=== PATIENT | female | born 2000 | race American Indian/Alaskan Native ===

== ENCOUNTER 2021-09-03 18:57 | Emergency (ER) | payer MEDICAID ==
[2021-09-03 20:12] VITALS: BP 142/75
[2021-09-03] MEDS ORDERED: ONDANSETRON 4 MG/2 ML INJ IV ONE (20:36)
[2021-09-03] MEDS ORDERED: SODIUM CHLORIDE 0.9% 1000 ML 1,000 ML IV ONE (20:36)
[2021-09-03] MEDS ORDERED: FAMOTIDINE 20 MG/2 ML INJ IV ONE (20:36)
[2021-09-03] MEDS ORDERED: MORPHINE 4 MG/1 ML INJ IV ONE (20:36)
--- NOTE | 2021-09-03 20:55 | Emergency Department Report ---
ED Abdominal Pain HPI - General Chief Complaint: Abdominal Pain Stated Complaint: RT UPPER QUAD PAIN Source: patient Mode of arrival: Ambulatory Limitations: No Limitations - History of Present Illness Initial Comments: Patient is a nulliparous 21-year-old -Luxembourger female with a history of insulin-dependent diabetes who presents to the ED with complaint of acute onset persistent right upper quadrant abdominal pain that radiates to the epigastric area with nausea for the last 24 hours. Patient states that the pain is constant and persistent and worse with any movement or palpation. Patient denies vomiting, diarrhea, dysuria, urinary frequency and urgency, fever, chills, cough, chest pain or shortness of breath, hematuria, vaginal bleeding, vaginal discharge, hematemesis, low back pain, traumatic injury or heavy lifting. MD Complaint: abdominal pain (Right upper quadrant pain), other (Nausea) -: Sudden, hour(s) (24) Location: RUQ, epigastric Radiation: RUQ, epigastric Migration to: no migration Severity: severe Severity scale (0 -10): 7 Quality: cramping, sharp Consistency: constant Improves With: nothing Worsens With: eating Associated Symptoms: nausea, anorexia. denies: denies other symptoms, vomiting, diarrhea, chills, constipation, hematemesis, melena, syncope - Related Data LMP Date: 05/07/21 (On control, no sexually active) LMP (females 10-50): 3 months Previous Rx's Medication Instructions Recorded Last Taken Type Famotidine [Pepcid] 20 mg PO BID #60 tablet 09/04/21 Unknown Rx Ketorolac [Toradol] 10 mg PO Q8H PRN #20 tab 09/04/21 Unknown Rx Ondansetron [Zofran Odt] 4 mg PO Q8HR PRN #15 tab.rapdis 09/04/21 Unknown Rx Tamsulosin [Flomax] 0.4 mg PO QDAY #10 cap 09/04/21 Unknown Rx traMADoL [Ultram] 50 mg PO Q6HR PRN #12 tablet 09/04/21 Unknown Rx Allergies Allergy/AdvReac Type Severity Reaction Status Date / Time No Known Allergies Allergy Unverified 09/03/21 20:18 ED Review of Systems ROS: Stated complaint: RT UPPER QUAD PAIN Other details as noted in HPI Constitutional: denies: chills, fever Eyes: denies: eye pain, eye discharge, vision change ENT: denies: ear pain, throat pain Respiratory: denies: cough, shortness of breath, wheezing Cardiovascular: denies: chest pain, palpitations Endocrine: no symptoms reported Gastrointestinal: abdominal pain (Right upper quadrant, epigastric area), nausea. denies: diarrhea Genitourinary: denies: urgency, dysuria, discharge Musculoskeletal: denies: back pain, joint swelling, arthralgia Skin: denies: rash, lesions Neurological: denies: headache, weakness, paresthesias Psychiatric: denies: anxiety, depression Hematological/Lymphatic: denies: easy bleeding, easy bruising ED Past Medical Hx - Past Medical History Previous Medical History?: Yes Hx Diabetes: Yes - Surgical History Past Surgical History?: No - Social History Smoking Status: Never Smoker Substance Use Type: None - Medications Home Medications: Home Medications Medication Instructions Recorded Confirmed Last Taken Type Famotidine [Pepcid] 20 mg PO BID #60 tablet 09/04/21 Unknown Rx Ketorolac [Toradol] 10 mg PO Q8H PRN #20 tab 09/04/21 Unknown Rx Ondansetron [Zofran Odt] 4 mg PO Q8HR PRN #15 tab.rapdis 09/04/21 Unknown Rx Tamsulosin [Flomax] 0.4 mg PO QDAY #10 cap 09/04/21 Unknown Rx traMADoL [Ultram] 50 mg PO Q6HR PRN #12 tablet 09/04/21 Unknown Rx ED Physical Exam - General Limitations: No Limitations General appearance: alert, in no apparent distress - Head Head exam: Present: atraumatic, normocephalic, normal inspection - Eye Eye exam: Present: normal appearance, PERRL, EOMI Pupils: Present: normal accommodation - ENT ENT exam: Present: normal exam, normal orophraynx, mucous membranes moist, TM's normal bilaterally, normal external ear exam - Neck Neck exam: Present: normal inspection, full ROM - Respiratory Respiratory exam: Present: normal lung sounds bilaterally. Absent: respiratory distress, wheezes, rales, stridor, chest wall tenderness, accessory muscle use, decreased breath sounds, prolonged expiratory - Cardiovascular Cardiovascular Exam: Present: regular rate, normal rhythm, normal heart sounds. Absent: systolic murmur, diastolic murmur, rubs, gallop - GI/Abdominal GI/Abdominal exam: Present: soft, tenderness (Palpable right upper quadrant tenderness with positive Blakely sign), guarding, normal bowel sounds. Absent: rebound, hyperactive bowel sounds, hypoactive bowel sounds, organomegaly, mass - Extremities Exam Extremities exam: Present: normal inspection, full ROM, normal capillary refill - Back Exam Back exam: Present: normal inspection, full ROM. Absent: tenderness, CVA tenderness (R), CVA tenderness (L), muscle spasm, paraspinal tenderness, vertebral tenderness - Neurological Exam Neurological exam: Present: alert, oriented X3, CN II-XII intact, normal gait, reflexes normal - Psychiatric Psychiatric exam: Present: normal affect, normal mood - Skin Skin exam: Present: warm, dry, intact, normal color. Absent: rash ED Course Vital Signs 09/03/21 09/03/21 20:09 21:05 Temperature 99.0 F Pulse Rate 98 H Respiratory 18 14 Rate Blood Pressure 142/75 O2 Sat by Pulse 97 Oximetry ED Medical Decision Making - Lab Data Result diagrams: 09/03/21 20:44 09/03/21 20:44 - Radiology Data Radiology results: report reviewed, image reviewed [place] [id number] Cat Scan Report Signed Patient: PETER FIGUEREDO MR#: [id number] : 2000 Acct:[id number] Age/Sex: 21 / F A DM Date: 09/03/21 Loc: ED Attending Dr: Ordering Physician: MATILDE BRAVO Date of Service: 09/03/21 Procedure(s): CT abdomen pelvis w con Accession Number(s): [id number] cc: MATILDE BRAVO CT OF THE ABDOMEN AND PELVIS WITH INTRAVENOUS CONTRAST INDICATION / CLINICAL INFORMATION: Abdominal pain. TECHNIQUE: The patient received 100 cc Omnipaque [address] scans at this location are performed using CT dose reduction for ALARA by means of automated exposure control. COMPARISON: None available. FINDINGS: ABDOMEN: The liver measures approximately 20 cm in length and demonstrates normal density without focal lesion. There are a couple of 1 mm nonobstructive calculi in the upper pole of the right kidney. The gallbladder, bile ducts, pancreas, spleen, adrenal glands and left kidney are normal in appearance. There is a mild amount of stool throughout the colon. I see no evidence of bowel obstruction, wall thickening or free air. No vascular abnormality is seen. There is no evidence of adenopathy. The lung bases are clear. PELVIS: The distal ureters and urinary bladder are normal. The uterus and adnexal regions are normal. No abnormal mass or fluid collection is seen. A normal appendix is present and there is no evidence of diverticulitis. I do not identify a hernia. No acute osseous abnormality is present. IMPRESSION: 1. Minimal nonobstructive right nephrolithiasis. No evidence of ureteral calculus or hydronephrosis. 2. Mild hepatomegaly. Signer Name: Gavino Temple MD Signed: 09/03/2021 11:22 PM Workstation Name: [id number] Transcribed By: RT Dictated By: Gavino Temple MD Electronically Authenticated By: Gavino Temple MD Signed Date/Time: 09/03/212321 DD/ 16 TD/TT: [address] [place] [address] Ultrasound Report Signed Patient: PETER FIGUEREDO MR#: [id number] : 2000 Acct:[id number] Age/Sex: 21 / F ADM Date: 09/03/21 Loc: ED Attending Dr: Ordering Physician: MATILDE BRAVO Date of Service: 09/03/21 Procedure(s): US abdomen limited Accession Number(s): [id number] cc: MATILDE BRAVO ULTRASOUND ABDOMEN, LIMITED (RIGHT UPPER QUADRANT) INDICATION: RUQ Pain. COMPARISON: None available. FINDINGS: Pancreas: Visualized portion shows no significant abnormality. Liver: Normal. Antegrade monophasic flow is seen in the main portal vein. Gallbladder: Normal. Bile ducts: Normal. Common Bile Duct measures 4-5 mm. Free fluid: None. Additional Findings: None. IMPRESSION: 1. No sonographic abnormality of the right upper quadrant. Signer Name: Tello Brown MD Signed: 09/03/2021 10:11 PM Workstation Name: [id number] Transcribed By: JUAREZ Dictated By: Tello Brown MD Electronically Authenticated By: Tello Brown MD Signed Date/Time: 09/03/212210 DD/ 10 TD/TT: - Medical Decision Making This is a nulliparous 21-year-old -Luxembourger female with a history of insulin-dependent diabetes who presents to the ED with complaint of acute onset persistent right upper quadrant abdominal pain that radiates to the epigastric area with nausea for the last 24 hours. Patient states that the pain is constant and persistent and worse with any movement or palpation. In the ED, patient is alert and oriented x3 and is not in any distress. Physical exam is remarkable for a palpable reproducible right upper quadrant tenderness with po sitive Blakely sign. Patient was treated for pain in the ED and was given normal saline 1 L IV fluids, antiemetics and antacids. All lab test results were reviewed and are all nonactionable. Gallbladder ultrasound showed no sonographic evidence of any right upper quadrant abnormalities. Abdomen pelvis CT scan with contrast showed minimal nonobstructive right nephrolithiasis. No evidence of ureteral calculus or hydronephrosis. It also showed mild hepatomegaly. On reevaluation, patient's pain is well controlled medication. Patient will discharge home on pain medications and advised to follow-up with her primary care physician in 7 to 10 days for reevaluation or return to the ED immediately if symptoms get worse. - Differential Diagnosis Cholelithiasis; pancreatitis cholecystitis, GERD; cholangitis; UTI Critical care attestation.: If time is entered above; I have spent that time in minutes in the direct care of this critically ill patient, excluding procedure time. ED Disposition Clinical Impression: Acute abdominal pain in right upper quadrant, Calculus of right kidney GERD (gastroesophageal reflux disease) Qualifiers: Esophagitis presence: esophagitis presence not specified Qualified Code(s): K21.9 - Gastro-esophageal reflux disease without esophagitis Disposition: HOME / SELF CARE / HOMELESS Is pt being admited?: No Does the pt Need Aspirin: No Condition: Stable Instructions: Abdominal Pain (ED), Kidney Stones, [id number], Abdominal Pain, Adult, Zbia-os-Guad, Gastroesophageal Reflux Disease, Adult, [id number] Additional Instructions: All lab test results were reviewed and are all nonactionable. Abdomen pelvis CT scan with contrast showed right kidney stones and gallbladder ultrasound was unremarkable with no acute abnormalities. Therefore take medication with food, drink plenty of fluids and follow-up with your primary care physician in 7 to 10 days for reevaluation. Return to the ED immediately if symptoms get worse. Prescriptions: Tamsulosin [Flomax] 0.4 mg PO QDAY #10 cap Famotidine [Pepcid] 20 mg PO BID #60 tablet Ketorolac [Toradol] 10 mg PO Q8H PRN #20 tab PRN Reason: Pain traMADoL [Ultram] 50 mg PO Q6HR PRN #12 tablet PRN Reason: Pain Ondansetron [Zofran Odt] 4 mg PO Q8HR PRN #15 tab.rapdis PRN Reason: Nausea Referrals: [facility] [Provider Group] - 7-10 days Forms: Work/School Release Form(ED) Time of Disposition: 00:32 Print Language: KOSOVAN
[2021-09-03 21:04] LABS: Basophils # (Auto) 0.1 K/mm3 (0.0-0.1); Basophils % (Auto) 0.6 % (0.0-1.8); Eosinophils # (Auto) 0.1 K/mm3 (0.0-0.4); Eosinophils % (Auto) 1.4 % (0.0-4.3); Hematocrit 39.2 % (30.3-42.9); Lymphocytes # (Auto) 2.9 K/mm3 (1.2-5.4); Lymphocytes % (Auto) 28.1 % (13.4-35.0); Mean Corpuscular HGB Conc 33 % (30-34); Mean Corpuscular Volume 77 fl (79-97); Monocytes # (Auto) 0.7 K/mm3 (0.0-0.8); Monocytes % (Auto) 6.5 % (0.0-7.3); Platelet Count 420 K/mm3 (140-440); Red Blood Count 5.09 M/mm3 (3.65-5.03); Red Cell Distribution Width 13.9 % (13.2-15.2)
[2021-09-03 21:21] LABS: Alanine Aminotransferase 17 units/L (7-56); Albumin 4.3 g/dL (3.9-5); Blood Urea Nitrogen 11 mg/dL (7-17); Calcium 9.7 mg/dL (8.4-10.2); Hemolysis Index 6
[2021-09-03 21:40] LABS: BUN/Creatinine Ratio 28
[2021-09-03 22:00] LABS: Bilirubin,Urine NEG (Negative); Blood,Urine SM (Negative); Color,Urine Yellow (Yellow); Protein,Urine <15 mg/dL mg/dL (Negative); Urobilinogen,Urine < 2.0 mg/dL (<2.0); WBC,Urine < 1.0 /HPF (0.0-6.0)
--- NOTE | 2021-09-03 22:16 | Ultrasound Report ---
ULTRASOUND ABDOMEN, LIMITED (RIGHT UPPER QUADRANT) INDICATION: RUQ Pain. COMPARISON: None available. FINDINGS: Pancreas: Visualized portion shows no significant abnormality. Liver: Normal. Antegrade monophasic flow is seen in the main portal vein. Gallbladder: Normal. Bile ducts: Normal. Common Bile Duct measures 4-5 mm. Free fluid: None. Additional Findings: None. IMPRESSION: 1. No sonographic abnormality of the right upper quadrant. Signer Name: Tello Brown MD Signed: 09/03/2021 10:11 PM Workstation Name: [id number]
--- NOTE | 2021-09-03 23:27 | Cat Scan Report ---
CT OF THE ABDOMEN AND PELVIS WITH INTRAVENOUS CONTRAST INDICATION / CLINICAL INFORMATION: Abdominal pain. TECHNIQUE: The patient received 100 cc Omnipaque [address] scans at this location are performed using CT dose reduction for ALARA by means of automated exposure control. COMPARISON: None available. FINDINGS: ABDOMEN: The liver measures approximately 20 cm in length and demonstrates normal density without foc al lesion. There are a couple of 1 mm nonobstructive calculi in the upper pole of the right kidney. T he gallbladder, bile ducts, pancreas, spleen, adrenal glands and left kidney are normal in appearance . There is a mild amount of stool throughout the colon. I see no evidence of bowel obstruction, wall thickening or free air. No vascular abnormality is seen. There is no evidence of adenopathy. The lung bases are clear. PELVIS: The distal ureters and urinary bladder are normal. The uterus and adnexal regions are normal. No abnormal mass or fluid collection is seen. A normal appendix is present and there is no evidence of diverticulitis. I do not identify a hernia. No acute osseous abnormality is present. IMPRESSION: 1. Minimal nonobstructive right nephrolithiasis. No evidence of ureteral calculus or hydronephrosis. 2. Mild hepatomegaly. Signer Name: Gavino Temple MD Signed: 09/03/2021 11:22 PM Workstation Name: [id number]
== END 2021-09-04 01:20 | disposition home or self-care (01) ==
LOC: ED 18:57
DX: R10.11 Right upper quadrant pain (principal); N20.0 Calculus of kidney; K21.9 Gastro-esophageal reflux disease without esophagitis; E11.9 Type 2 diabetes mellitus without complications
CPT/HCPCS: 36415; 74177; 76705; 80053; 81001; 83690; 84703; 85025; 96361; 96374; 96375; 99284; J2270; J2405; J3490; J7030; Q9967; Q0162

== ENCOUNTER 2022-02-06 05:29 | Emergency (ER) | payer MEDICAID ==
--- NOTE | 2022-02-06 08:20 | Emergency Department Report ---
- General Chief Complaint: Headache Stated Complaint: BAD HEADACHE Source: patient Mode of arrival: Ambulatory Limitations: No Limitations - History of Present Illness Initial Comments: 21-year-old female presents to the ED complaining of headache ,dizziness and sinus symptoms x10 days. She states that she was at work yesterday when she noticed that she got a little lightheaded. Patient states that symptom gets worse when she bent down and come for. She states that she has to constantly clear her throat. Patient states taking Motrin yesterday with mild relief. Patient is a he has a diabetes mellitus using an insulin device. Patient denies any fever chills nausea or vomiting at present. Denies any chest pain or shortness of breath at present. Patient is alert and oriented x3. No acute distress noted. No ill appearance noted MD Complaint: cough, nasal congestion, sinus pain Onset/Timin -: days(s) Severity: moderate Severity scale (0 -10): 9 Quality: dull Consistency: intermittent Worsens With: nothing Context: sick contacts Associated Symptoms: denies other symptoms - Related Data Previous Rx's Medication Instructions Recorded Last Taken Type Famotidine [Pepcid] 20 mg PO BID #60 tablet 09/04/21 Unknown Rx Ketorolac [Toradol] 10 mg PO Q8H PRN #20 tab 09/04/21 Unknown Rx Ondansetron [Zofran Odt] 4 mg PO Q8HR PRN #15 tab.rapdis 09/04/21 Unknown Rx Tamsulosin [Flomax] 0.4 mg PO QDAY #10 cap 09/04/21 Unknown Rx traMADoL [Ultram] 50 mg PO Q6HR PRN #12 tablet 09/04/21 Unknown Rx Amoxicillin/K Clav Tab [Augmentin 1 tab PO Q12HR 10 Days #20 tab 02/06/22 Unknown Rx 875 mg] Cetirizine HCl/Pseudoephedrine 1 each PO BID 15 Days #30 tab 02/06/22 Unknown Rx [Zyrtec-D Tablet] Ketorolac [Toradol] 10 mg PO Q6H PRN 15 Days #30 tab 02/06/22 Unknown Rx Allergies Allergy/AdvReac Type Severity Reaction Status Date / Time No Known Allergies Allergy Unverified 09/03/21 20:18 ED Review of Systems ROS: Stated complaint: BAD HEADACHE Other details as noted in HPI Constitutional: denies: chills, fever Eyes: denies: eye pain, eye discharge, vision change ENT: denies: ear pain, throat pain Respiratory: denies: shortness of breath, wheezing Cardiovascular: denies: chest pain, palpitations Endocrine: no symptoms reported Gastrointestinal: denies: abdominal pain, nausea, diarrhea Genitourinary: denies: urgency, dysuria, discharge Musculoskeletal: denies: back pain, joint swelling, arthralgia Skin: denies: rash, lesions Neurological: headache. denies: weakness, paresthesias Psychiatric: denies: anxiety, depression Hematological/Lymphatic: denies: easy bleeding, easy bruising ED Past Medical Hx - Past Medical History Hx Diabetes: Yes - Social History Smoking Status: Never Smoker Substance Use Type: None - Medications Home Medications: Home Medications Medication Instructions Recorded Confirmed Last Taken Type Famotidine [Pepcid] 20 mg PO BID #60 tablet 09/04/21 Unknown Rx Ketorolac [Toradol] 10 mg PO Q8H PRN #20 tab 09/04/21 Unknown Rx Ondansetron [Zofran Odt] 4 mg PO Q8HR PRN #15 tab.rapdis 09/04/21 Unknown Rx Tamsulosin [Flomax] 0.4 mg PO QDAY #10 cap 09/04/21 Unknown Rx traMADoL [Ultram] 50 mg PO Q6HR PRN #12 tablet 09/04/21 Unknown Rx Amoxicillin/K Clav Tab [Augmentin 1 tab PO Q12HR 10 Days #20 tab 02/06/22 Unknown Rx 875 mg] Cetirizine HCl/Pseudoephedrine 1 each PO BID 15 Days #30 tab 02/06/22 Unknown Rx [Zyrtec-D Tablet] Ketorolac [Toradol] 10 mg PO Q6H PRN 15 Days #30 tab 02/06/22 Unknown Rx ED Physical Exam - General Limitations: No Limitations General appearance: alert, in no apparent distress - Head Head exam: Present: atraumatic, normocephalic - Eye Eye exam: Present: normal appearance - ENT ENT exam: Present: mucous membranes moist - Neck Neck exam: Present: normal inspection - Respiratory Respiratory exam: Present: normal lung sounds bilaterally. Absent: respiratory distress - Cardiovascular Cardiovascular Exam: Present: regular rate, normal rhythm. Absent: systolic mur mur, diastolic murmur, rubs, gallop - GI/Abdominal GI/Abdominal exam: Present: soft, normal bowel sounds - Extremities Exam Extremities exam: Present: normal inspection - Back Exam Back exam: Present: normal inspection - Neurological Exam Neurological exam: Present: alert, oriented X3 - Psychiatric Psychiatric exam: Present: normal affect, normal mood - Skin Skin exam: Present: warm, dry, intact, normal color. Absent: rash ED Course Vital Signs 02/06/22 02/06/22 05:37 07:32 Temperature 98.9 F Pulse Rate 99 H Respiratory 18 Rate Blood Pressure 154/95 O2 Sat by Pulse 93 98 Oximetry ED Medical Decision Making - Medical Decision Making 31-year-old female presents to the ED complaining of abscess noted to her left lower labia area. She states that she has a history of getting Bartholin cyst at the her . She states that normally the cyst will expel on their own. She states that the cyst has been constantly getting bigger for the last 5 days. States she has tried [id number] warm compresses without any relief. States that this is brought on by her hemorrhoids. Patient states that pain is a current 8 out of 10. Patient denies any fever chills nausea or vomiting. She denies any vaginal discharge at present time. Patient is alert and oriented x3. No acute distress noted. No ill appearance noted. Physical examination patient has mild effusion noted to the left ear with erythema. Tenderness to the frontal cavity upon palpation. Postnasal drip noted. Rechecked the patient is resting quietly quietly and comfortable and feeling better. I discussed the results of diagnostic study, my clinical impression and the plan for further treatment with the patient. Patient agrees with plan and discharge at this present time. All question addressed. I have given the patient instruction regarding a diagnosis ,expectation ,follow- up and return precaution. I explained to the patient that emergent condition may arise and to return to the ED for new worsen and any new persisting condition. I have explained the importance of following up with the primary care physician or referral physician listed below has instructed. The patient verbalized understanding of discharge instruction. Critical care attestation.: If time is entered above; I have spent that time in minutes in the direct care of this critically ill patient, excluding procedure time. ED Disposition Clinical Impression: Sinusitis Qualifiers: Sinusitis location: frontal Chronicity: acute Recurrence: non-recurrent Qualified Code(s): J01.10 - Acute frontal sinusitis, unspecified Disposition: 01 HOME / SELF CARE / HOMELESS Is pt being admited?: No Does the pt Need Aspirin: No Condition: Stable Instructions: Sinusitis, Adult, [id number] Additional Instructions: Take medication as prescribed Return to ED for any worsening symptom Prescriptions: Amoxicillin/K Clav Tab [Augmentin 875 mg] 1 tab PO Q12HR 10 Days #20 tab Ketorolac [Toradol] 10 mg PO Q6H PRN 15 Days #30 tab PRN Reason: Pain Cetirizine HCl/Pseudoephedrine [Zyrtec-D Tablet] 1 each PO BID 15 Days #30 tab Referrals: [facility] [Provider Group] - 3-5 Days Forms: Work/School Release Form(ED) Time of Disposition: 08:29
[2022-02-06 08:54] VITALS: BP 128/78
== END 2022-02-06 10:48 | disposition home or self-care (01) ==
LOC: ED 05:29
DX: J01.90 Acute sinusitis, unspecified (principal); E11.9 Type 2 diabetes mellitus without complications
CPT/HCPCS: 99282

== ENCOUNTER 2022-02-23 10:38 | Emergency (ER) | payer MEDICAID | END 2022-02-23 12:25 | disposition left against medical advice (07) | LOC: ED 10:38 | DX: I21.9 Acute myocardial infarction, unspecified (principal); Z53.21 Procedure and treatment not carried out due to patient leaving prior to being seen by health care provider ==